=== PATIENT | female | born 1990 | race Caucasian/White ===

== ENCOUNTER 2016-05-10 17:45 | Emergency (ER) | payer BC, MEDICAID ==
--- NOTE | 2016-05-10 18:04 | ER Document Report ---
ED Medical Screen (RME) - General Stated Complaint: HEAD PAIN,VOMITING Mode of Arrival: Ambulatory Information source: Patient Notes: Patient presents to the emergency department with headache cramping vomiting. Patient is approximately 16 weeks . Denies vag bleed I greeted and performed a rapid initial assessment of this patient. Comprehensive ED assessment and evaluation of the patient, analysis of test results and completion of the medical decision making process will be conducted by additional ED providers. - Related Data Allergies/Adverse Reactions: levetiracetam [From Keppra] Allergy (Severe, Verified 05/10/16 18:03) Anaphylaxis pregabalin [From Lyrica] Allergy (Severe, Verified 05/10/16 18:03) Chest pain Physical Exam - Vital signs Vitals: Temp Pulse Resp BP Pulse Ox 98.6 F 106 H 18 122/76 100 05/10/16 17:53 05/10/16 17:53 05/10/16 17:53 05/10/16 17:53 05/10/16 17:53 Course - Vital Signs Vital signs: Temp Pulse Resp BP Pulse Ox 98.6 F 106 H 18 122/76 100 05/10/16 17:53 05/10/16 17:53 05/10/16 17:53 05/10/16 17:53 05/10/16 17:53
[2016-05-10] MEDS ORDERED: NORMAL SALINE 1000 ML 1,000 ML IV ONE ×2 (18:35→19:33)
[2016-05-10 18:52] LABS: ABSOLUTE EOSINOPHILS # (AUTO) 0.1 10^3/uL (0.0-0.6); ABSOLUTE MONOCYTES (AUTO) 0.7 10^3/uL (0.1-1.4); ABSOLUTE NEUT (AUTO) 12.4 10^3/uL (1.7-8.2); BASOPHILS % (AUTO) 0.3 % (0-2); EOSINOPHILS % (AUTO) 0.5 % (0-6); HEMATOCRIT 42.7 % (36.0-47.0); HEMOGLOBIN 13.8 g/dL (12.0-15.5); HGB HCT DIFFERENCE -1.3; LYMPHOCYTES % (AUTO) 7.1 % (13-45); MEAN CORPUSCULAR HEMOGLOBIN 29.4 pg (27.0-33.4); MEAN CORPUSCULAR HGB CONC 32.4 g/dL (32.0-36.0); MEAN CORPUSCULAR VOLUME 91 fl (80-97); MONOCYTES % (AUTO) 4.7 % (3-13); RED BLOOD COUNT 4.71 10^6/uL (3.72-5.28); RED CELL DISTRIBUTION WIDTH 12.4 % (11.5-14.0); SEGMENTED NEUTROPHILS % (AUTO) 87.4 % (42-78); WHITE BLOOD COUNT 14.2 10^3/uL (4.0-10.5)
[2016-05-10 19:25] LABS: ALANINE AMINOTRANSFERASE 25 U/L (9-52); ALBUMIN 3.8 g/dL (3.5-5.0); ALKALINE PHOSPHATASE 74 U/L (38-126); ANION GAP 12 (5-19); ASPARTATE AMINO TRANSFERASE 27 U/L (14-36); BILIRUBIN,TOTAL 0.6 mg/dL (0.2-1.3); BLOOD UREA NITROGEN 11 mg/dL (7-20); CALCIUM 8.8 mg/dL (8.4-10.2); CARBON DIOXIDE 23 mmol/L (22-30); CHLORIDE 100 mmol/L (98-107); CREATININE RESULT 0.45 mg/dL (0.52-1.25); GLUCOSE 71 mg/dL (75-110); SODIUM 135.3 mmol/L (137-145); TOTAL PROTEIN 6.8 g/dL (6.3-8.2)
[2016-05-10 19:45] LABS: APPEARANCE,URINE SLIGHTLY-CLOUDY; BILIRUBIN,URINE NEGATIVE (NEGATIVE); GLUCOSE, URINE NEGATIVE (NEGATIVE); KETONES,URINE 80 mg/dL (NEGATIVE); LEUKOCYTE ESTERASE,URINE TRACE (NEGATIVE); NITRITE,URINE NEGATIVE (NEGATIVE); PROTEIN,URINE NEGATIVE (NEGATIVE); URINE SPECIFIC GRAVITY 1.024
[2016-05-10] MEDS ORDERED: ONDANSETRON ODT 4 MG TAB (6 TAB/DSPK) PO PRN (20:55)
--- NOTE | 2016-05-10 21:02 | ER Document Report ---
ED GI/ - General Chief Complaint: Abdominal Cramping Stated Complaint: HEAD PAIN,VOMITING Mode of Arrival: Ambulatory TRAVEL OUTSIDE OF THE [place] IN LAST 30 DAYS: No - HPI Patient complains to provider of: Pelvic pain, Vomiting Onset: Yesterday - EVENING Timing/Duration: Gradual, Waxing and waning Quality of pain: Achy, Cramping - PELVIC, Dull Severity at maximum: Moderate Severity in ED: Mild Context: , Other - HAD FLU AND P17 INJECTION YESTERDAY @ OB. OFFICE Location: Pelvis Vaginal bleeding (Compared to normal period): None Menstrual period history: - 16 WKS heart tones (bpm): 154 Sexual history: Active Associated symptoms: Nausea, Vomiting. denies: Diarrhea, Dysuria, Fever Exacerbated by: Food - OR LIQUID Relieved by: Denies Similar symptoms previously: No Recently seen / treated by doctor: Yes - SEE ABOVE - Related Data Allergies/Adverse Reactions: levetiracetam [From Keppra] Allergy (Severe, Verified 05/10/16 18:03) Anaphylaxis pregabalin [From Lyrica] Allergy (Severe, Verified 05/10/16 18:03) Chest pain Past Medical History - General Information source: Patient - Social History Smoking Status: Never Smoker Chew tobacco use (# tins/day): No Frequency of alcohol use: None Drug Abuse: None Lives with: Spouse/Significant other Family History: Reviewed & Not Pertinent Patient has suicidal ideation: No Patient has homicidal ideation: No - Past Medical History Cardiac Medical History: Reports: None Pulmonary Medical History: Reports: None EENT Medical History: Reports: None Neurological Medical History: Reports: Hx Migraine Endocrine Medical History: Reports: None Renal/ Medical History: Reports: Other - PREMATURE DELIVERY. Denies: Hx Peritoneal Dialysis Malignancy Medical History: Reports: None GI Medical History: Reports: None Musculoskeltal Medical History: Reports None Psychiatric Medical History: Reports: None Past Surgical History: Reports: Hx Orthopedic Surgery - left forearm, right shoulder Review of Systems - Review of Systems Constitutional: No symptoms reported EENT: No symptoms reported Cardiovascular: No symptoms reported Respiratory: No symptoms reported Gastrointestinal: See HPI Genitourinary: See HPI Female Genitourinary: See HPI Musculoskeletal: No symptoms reported Skin: No symptoms reported Neurological/Psychological: See HPI Physical Exam - Vital signs Vitals: Temp Pulse Resp BP Pulse Ox 98.6 F 106 H 18 122/76 100 05/10/16 17:53 05/10/16 17:53 05/10/16 17:53 05/10/16 17:53 05/10/16 17:53 Interpretation: Tachycardic. No: Hypotensive, Tachypneic, Febrile - General General appearance: Appears well, Alert In distress: None - HEENT Head: Normocephalic Eyes: Normal Conjunctiva: Normal Ears: Normal Nasal: Normal Mouth/Lips: Normal Mucous membranes: Dry - MILDLY Pharynx: Normal Neck: Normal - Respiratory Respiratory status: No respiratory distress Breath sounds: Normal - Cardiovascular Rhythm: Regular, Tachycardia Heart sounds: Normal auscultation Murmur: No - Abdominal Inspection: Gravid female Bowel sounds: Normal Tenderness: Nontender - Extremities General upper extremity: Normal inspection General lower extremity: Normal inspection - Neurological Neuro grossly intact: Yes Cognition: Normal Orientation: AAOx4 - Psychological Associated symptoms: Normal affect, Normal mood - Skin Skin Temperature: Warm Skin Moisture: Dry Skin Color: Normal Skin Turgor: Elastic Course - Re-evaluation Re-evalutation: 05/10/16 20:56 Patient states she is much improved. Only slight nausea. Cramps have diminished. Results of ultrasound discussed with patient and spouse. - Vital Signs Vital signs: Temp Pulse Resp BP Pulse Ox 98.6 F 106 H 18 122/76 100 05/10/16 17:53 05/10/16 17:53 05/10/16 18:29 05/10/16 17:53 05/10/16 17:53 - Laboratory Result Diagrams: 05/10/16 18:40 05/10/16 18:40 Laboratory results interpreted by me: 05/10/16 05/10/16 05/10/16 18:07 18:40 18:40 WBC 14.2 H Seg Neutrophils % 87.4 H Lymphocytes % 7.1 L Absolute Neutrophils 12.4 H Sodium 135.3 L Creatinine 0.45 L Glucose 71 L Urine Ketones 80 H Urine Urobilinogen 2.0 H Ur Leukocyte Esterase TRACE H - Consults DR. Zoë LOBATO Time consulted: 19:50 Consulted provider: follow-up in office Discharge - Discharge Clinical Impression: Dehydration Vomiting Qualifiers: Vomiting type: unspecified Vomiting Intractability: non-intractable Nausea presence: with nausea Qualified Code(s): R11.2 - Nausea with vomiting, unspecified Qualifiers: Weeks of gestation: 16 weeks Qualified Code(s): Z3A.16 - 16 weeks gestation of Condition: Stable Disposition: HOME, SELF-CARE Instructions: Antinausea Medication ([facility]), Dehydration ([facility]), Intravenous (IV) Fluids ([facility]) Additional Instructions: CLEAR LIQUID DIET UNTIL IMPROVED, THEN GRADUALLY ADVANCE DIET. YOU MAY TAKE ZOFRAN IF NEEDED FOR NAUSEA CONTROL. FOLLOW UP WITH YOUR OB. DOCTOR SCHEDULED. RETURN TO E.R. IF YOU GET WORSE, ANY TIME. Referrals: TSERING LOBATO MD [ACTIVE STAFF] - Follow up as needed
[2016-05-10 21:48] VITALS: BP 112/66
== END 2016-05-10 21:48 | disposition home or self-care (01) ==
LOC: ER 17:45
DX: O21.9 Vomiting of pregnancy, unspecified (principal); O99.282 Endocrine, nutritional and metabolic diseases complicating pregnancy, second trimester; E86.0 Dehydration; O26.892 Other specified pregnancy related conditions, second trimester; R10.2 Pelvic and perineal pain; R00.0 Tachycardia, unspecified; Z3A.16 16 weeks gestation of pregnancy; Z88.8 Allergy status to other drugs, medicaments and biological substances; Z88.6 Allergy status to analgesic agent
CPT/HCPCS: 99284; 96360; 96361; 36415; 85025; 80053; 81001; 76817; J7030

== ENCOUNTER 2016-09-16 17:08 | Outpatient (CLI) | payer BC, MEDICAID | END 2016-09-16 17:45 | disposition home or self-care (01) | LOC: LC 17:08 | PROVIDERS: ATTEND Obstetrics & Gynecology | PROC: 4A1HXCZ Monitoring of Products of Conception, Cardiac Rate, External Approach (ICD-10-PCS; principal; 2016-09-16) | DX: O36.8130 Decreased fetal movements, third trimester, not applicable or unspecified (principal); Z3A.35 35 weeks gestation of pregnancy | CPT/HCPCS: 59025 ==

== ENCOUNTER 2016-10-11 08:58 | Outpatient (CLI) | payer BC, MEDICAID ==
[2016-10-11 09:44] LABS: APPEARANCE,URINE SLIGHTLY-CLOUDY; BILIRUBIN,URINE NEGATIVE (NEGATIVE); GLUCOSE, URINE NEGATIVE (NEGATIVE); KETONES,URINE NEGATIVE (NEGATIVE); LEUKOCYTE ESTERASE,URINE NEGATIVE (NEGATIVE); NITRITE,URINE NEGATIVE (NEGATIVE); PROTEIN,URINE NEGATIVE (NEGATIVE); URINE SPECIFIC GRAVITY 1.004; UROBILINOGEN,URINE NEGATIVE mg/dL (<2.0)
[2016-10-11 10:09] LABS: URINE BARBITURATES SCREEN NEGATIVE; URINE METHADONE SCREEN NEGATIVE; URINE OPIATES LOW NEGATIVE; URINE PHENCYCLIDINE SCREEN NEGATIVE
[2016-10-11 10:17] LABS: ABSOLUTE EOSINOPHILS # (AUTO) 0.1 10^3/uL (0.0-0.6); ABSOLUTE LYMPHOCYTES (AUTO) 2.7 10^3/uL (0.5-4.7); ABSOLUTE MONOCYTES (AUTO) 0.8 10^3/uL (0.1-1.4); ABSOLUTE NEUT (AUTO) 7.5 10^3/uL (1.7-8.2); BASOPHILS % (AUTO) 0.2 % (0-2); EOSINOPHILS % (AUTO) 0.8 % (0-6); HEMATOCRIT 38.2 % (36.0-47.0); HEMOGLOBIN 12.3 g/dL (12.0-15.5); HGB HCT DIFFERENCE -1.3; LYMPHOCYTES % (AUTO) 23.9 % (13-45); MEAN CORPUSCULAR HEMOGLOBIN 27.2 pg (27.0-33.4); MEAN CORPUSCULAR HGB CONC 32.2 g/dL (32.0-36.0); MEAN CORPUSCULAR VOLUME 84 fl (80-97); MONOCYTES % (AUTO) 7.5 % (3-13); RED BLOOD COUNT 4.53 10^6/uL (3.72-5.28); RED CELL DISTRIBUTION WIDTH 13.3 % (11.5-14.0); SEGMENTED NEUTROPHILS % (AUTO) 67.6 % (42-78); WHITE BLOOD COUNT 11.1 10^3/uL (4.0-10.5)
[2016-10-11 10:26] LABS: ALANINE AMINOTRANSFERASE 23 U/L (9-52); ALBUMIN 3.1 g/dL (3.5-5.0); ALKALINE PHOSPHATASE 173 U/L (38-126); ANION GAP 9 (5-19); ASPARTATE AMINO TRANSFERASE 21 U/L (14-36); BILIRUBIN,DIRECT 0.2 mg/dL (0.0-0.4); BILIRUBIN,TOTAL 0.4 mg/dL (0.2-1.3); BLOOD UREA NITROGEN 9 mg/dL (7-20); CARBON DIOXIDE 20 mmol/L (22-30); CHLORIDE 107 mmol/L (98-107); CREATININE RESULT 0.51 mg/dL (0.52-1.25); GLUCOSE 92 mg/dL (75-110); LDH 418 U/L (313-618); POTASSIUM 4.1 mmol/L (3.6-5.0); SODIUM 135.6 mmol/L (137-145); TOTAL PROTEIN 6.2 g/dL (6.3-8.2); URIC ACID 6.6 mg/dL (2.5-6.2)
[2016-10-11 11:16] LABS: URINE CREATININE 32.7 mg/dL (16-327); URINE PROTEIN 14.1 mg/dL (<12)
--- NOTE | 2016-10-11 11:44 | Non Stress Test Report ---
Non Stress Test Datetime Report Generated by CPN: 10/11/2016 11:44 DEMOGRAPHIC EGA NST: 38.5 EGA NST: 35.1 INDICATION Indication for Study: Ordered by Provider Indication for Study: Decreased Movement MONITORING Monitor Explained: Monitor Explained; Test Explained; Patient Verbalized Understanding Monitor Explained: Monitor Explained; Test Explained; Patient Verbalized Understanding Time on Monitor: 10/11/2016 09:21 Time on Monitor: 09/16/2016 17:15 Time off Monitor: 10/11/2016 11:32 Time off Monitor: 09/16/2016 17:38 NST Duration: 131 NST Duration: 23 NST INTERVENTIONS NST Interventions: PO Hydration; Reposition Patient NST Interventions: PO Hydration; IV Fluids Physician Notified NST: Tatiana Yangel [facility] Physician Notified NST: Mau BABY A: [id number] BABY A Movement : Present Contraction Frequency : none Contraction Frequency : x0 FHR Baseline : 130 FHR Baseline : 140 Accelerations : 15X15 Accelerations : 15X15 Decelerations : None Decelerations : None Variability : Moderate 6-25bpm Variability : Moderate 6-25bpm NST Review: Meets Criteria for Reactive NST NST Review: Meets Criteria for Reactive NST NST Review and Verified By : Tatiana Aviles RN NST Results: Reactive NST Results: Reactive NST REPORT Report Trigger: Send Report
== END 2016-10-11 11:40 | disposition home or self-care (01) ==
LOC: LC 08:58
PROVIDERS: ATTEND Specialist
PROC: 4A1HXCZ Monitoring of Products of Conception, Cardiac Rate, External Approach (ICD-10-PCS; principal; 2016-10-11)
DX: O14.93 Unspecified pre-eclampsia, third trimester (principal); Z3A.35 35 weeks gestation of pregnancy
CPT/HCPCS: 36415; 80053; 80307; 81001; 82570; 83615; 84156; 84550; 85025

== ENCOUNTER → 2016-10-12 | Outpatient (CLI) | payer BC, MEDICAID | LOC: LAB 14:42 | PROVIDERS: ATTEND Specialist | DX: O12.10 Gestational proteinuria, unspecified trimester (principal) | CPT/HCPCS: 84156 ==

== ENCOUNTER 2016-10-17 20:00 | Inpatient (IN) | payer BC, MEDICAID ==
[2016-10-17 20:39] LABS: ABSOLUTE BASOPHILS # (AUTO) 0.1 10^3/uL (0.0-0.2); ABSOLUTE EOSINOPHILS # (AUTO) 0.1 10^3/uL (0.0-0.6); ABSOLUTE LYMPHOCYTES (AUTO) 4.9 10^3/uL (0.5-4.7); ABSOLUTE MONOCYTES (AUTO) 1.4 10^3/uL (0.1-1.4); ABSOLUTE NEUT (AUTO) 7.9 10^3/uL (1.7-8.2); BASOPHILS % (AUTO) 0.6 % (0-2); EOSINOPHILS % (AUTO) 0.8 % (0-6); HEMATOCRIT 37.9 % (36.0-47.0); HEMOGLOBIN 12.2 g/dL (12.0-15.5); HGB HCT DIFFERENCE -1.3; LYMPHOCYTES % (AUTO) 34.2 % (13-45); MEAN CORPUSCULAR HEMOGLOBIN 27.6 pg (27.0-33.4); MEAN CORPUSCULAR HGB CONC 32.2 g/dL (32.0-36.0); MEAN CORPUSCULAR VOLUME 86 fl (80-97); MONOCYTES % (AUTO) 9.5 % (3-13); RED BLOOD COUNT 4.42 10^6/uL (3.72-5.28); RED CELL DISTRIBUTION WIDTH 13.4 % (11.5-14.0); SEGMENTED NEUTROPHILS % (AUTO) 54.9 % (42-78); WHITE BLOOD COUNT 14.4 10^3/uL (4.0-10.5)
[2016-10-17 20:46] LABS: APPEARANCE,URINE CLOUDY; BILIRUBIN,URINE NEGATIVE (NEGATIVE); GLUCOSE, URINE NEGATIVE (NEGATIVE); KETONES,URINE NEGATIVE (NEGATIVE); LEUKOCYTE ESTERASE,URINE NEGATIVE (NEGATIVE); NITRITE,URINE NEGATIVE (NEGATIVE); PROTEIN,URINE NEGATIVE (NEGATIVE); URINE SPECIFIC GRAVITY 1.023; UROBILINOGEN,URINE NEGATIVE mg/dL (<2.0)
[2016-10-17] MEDS ORDERED: OXYTOCIN/NORMAL SALINE 1,000 ML IV PRN (21:01)
[2016-10-17] MEDS ORDERED: RINGERS SOLUTION,LACTATED 300 ML IV ONE (21:01)
[2016-10-17] MEDS ORDERED: DINOPROSTONE 10 MG VAGINAL INSERT.SR PV PRN (21:01)
[2016-10-17 21:03] LABS: URINE BARBITURATES SCREEN NEGATIVE; URINE METHADONE SCREEN NEGATIVE; URINE OPIATES LOW NEGATIVE; URINE PHENCYCLIDINE SCREEN NEGATIVE
[2016-10-17] MEDS: RINGERS SOLUTION,LACTATED 1,000 ML IV PRN (21:20)
[2016-10-17] MEDS ORDERED: DINOPROSTONE 10 MG VAGINAL INSERT.SR ONE (21:28)
[2016-10-17] MEDS ORDERED: ACETAMINOPHEN 325 MG TABLET PO ONE (22:15)
[2016-10-17] MEDS ORDERED: ACETAMINOPHEN 325 MG TABLET ONE (22:19)
[2016-10-17 23:37] LABS: ALANINE AMINOTRANSFERASE 23 U/L (9-52); ALKALINE PHOSPHATASE 182 U/L (38-126); ANION GAP 10 (5-19); ASPARTATE AMINO TRANSFERASE 20 U/L (14-36); BILIRUBIN,DIRECT 0.3 mg/dL (0.0-0.4); BILIRUBIN,TOTAL 0.4 mg/dL (0.2-1.3); BLOOD UREA NITROGEN 11 mg/dL (7-20); CALCIUM 8.5 mg/dL (8.4-10.2); CARBON DIOXIDE 21 mmol/L (22-30); CHLORIDE 107 mmol/L (98-107); GLUCOSE 72 mg/dL (75-110); LDH 374 U/L (313-618); POTASSIUM 3.7 mmol/L (3.6-5.0); SODIUM 137.5 mmol/L (137-145); TOTAL PROTEIN 5.9 g/dL (6.3-8.2); URIC ACID 6.2 mg/dL (2.5-6.2)
[2016-10-18 00:06] LABS: APPEARANCE,URINE SLIGHTLY-CLOUDY; BILIRUBIN,URINE NEGATIVE (NEGATIVE); GLUCOSE, URINE NEGATIVE (NEGATIVE); KETONES,URINE 20 mg/dL (NEGATIVE); LEUKOCYTE ESTERASE,URINE NEGATIVE (NEGATIVE); NITRITE,URINE NEGATIVE (NEGATIVE); PROTEIN,URINE NEGATIVE (NEGATIVE); UROBILINOGEN,URINE NEGATIVE mg/dL (<2.0)
[2016-10-18] MEDS ORDERED: ZOLPIDEM TARTRATE 5 MG TABLET PO ONE (02:22)
[2016-10-18] MEDS ORDERED: ZOLPIDEM TARTRATE 5 MG TABLET ONE (02:27)
[2016-10-18] MEDS: RINGERS SOLUTION,LACTATED 1,000 ML IV PRN (03:48)
--- NOTE | 2016-10-18 08:26 | L&D Progress Notes ---
PROGRESS NOTES Datetime Report Generated by CPN: 10/18/2016 08:26 PROGRESS NOTE Impression: Reassuring Heart Rate Procedures: Sterile Vag Exam Plan: Induction Informed Consent Obtained: Vaginal Delivery Vital Signs : Reviewed; Within Normal Limits Comment: Crampy Cervidil removed, SVE as above Pt may shower and have breakfast Start pit after break Pitocin per protocol. Anticpate VAGINAL EXAM Dilatation: 3 Dilatation: 2 Effacement: 70 Effacement: 50 Station: -1 Station: -2 Contractions: irregulqr MEMBRANES Membranes: Intact Membranes: Intact FETUS A FHR - Baseline: 140 Monitoring: External US Variability: Moderate 6-25bpm Decelerations: None : 39.5 SIGNATURE SIGNATURE: [id number] SIGNATURE: [id number] Assignment: Thi Mims MD Signature: with User ID: [email or web address] : with User ID: [email or web address]
[2016-10-18] MEDS ORDERED: OXYTOCIN/NORMAL SALINE 20 UNIT/1,000 ML RTUINJ ONE (09:23)
--- NOTE | 2016-10-18 13:16 | L&D Progress Notes ---
PROGRESS NOTES Datetime Report Generated by CPN: 10/18/2016 13:16 PROGRESS NOTE Impression: Reassuring Heart Rate Procedures: Artificial ROM; Scalp Electrode Plan: Continue Present Management; Induction Informed Consent Obtained: Vaginal Delivery Vital Signs : Reviewed; Within Normal Limits Comment: AROM clear Pt declines pain meds at this time Continue pitocin VAGINAL EXAM Dilatation: 4 Effacement: 80 Station: -1 Contractions: irregular MEMBRANES Membranes: Ruptured Amniotic Fluid Color: Clear FETUS A FHR - Baseline: 140 Monitoring: External US Variability: Moderate 6-25bpm Accelerations: 15X15 Decelerations: None FHR Category: Category I FETUS C SIGNATURE: [id number] Assignment: Thi Mims MD Signature: with User ID: [email or web address] : with User ID: [email or web address]
[2016-10-18] MEDS ORDERED: DIPH/PERTUSS(ACELL)/TETANUS VAC/PF 0.5 ML SYR (>=10YO) IM PRN (14:31)
[2016-10-18] MEDS ORDERED: MEASLES,MUMPS&RUBELLA VACC/PF 0.5 ML VIAL SUBCUT PRN (14:31)
[2016-10-18] MEDS ORDERED: BENZOCAINE/MENTHOL AEROSOL SPRAY 56 ML TOP PRN (14:31)
[2016-10-18] MEDS ORDERED: ZOLPIDEM TARTRATE 5 MG TABLET PO PRN (14:31)
[2016-10-18] MEDS ORDERED: ACETAMINOPHEN WITH CODEINE #3 TABLET PO PRN (14:31)
[2016-10-18] MEDS ORDERED: OXYTOCIN/NORMAL SALINE 1,000 ML IV PRN (14:31)
[2016-10-18] MEDS ORDERED: DIBUCAINE 1% OINTMENT 28 GM TP PRN (14:31)
--- NOTE | 2016-10-18 15:11 | Delivery Summary ---
Del Sum A-C Datetime Report Generated by CPN: 10/18/2016 15:11 DELIVERY PERSONNEL DELIVERY PERSONNEL: [id number] Delivery Doctor:: Raissa Riley CNM Labor and Delivery Nurse:: Cami Elmore RNconversion developer Nurse:: TOVA Alvarado/CARROTING MACHINE OPERATOR: Dee Angel, MANAGER BANKING MATERNAL INFORMATION Delivery Anesthesia: None Medications After Delivery: Pitocin Bolus-Please Comment; Pitocin Drip 20 Units/1000ml NSS Estimated Blood Loss (ml): 200 Maternal Complications: Other Other Maternal Complications: Gest HTN Provider Comments: of viable female infant over intact perineum. Head shoulders and body delviered without difficulty. with spontaneous cry and respirations to maternal abdomen, cord clamped X2, cut free, after 2 minute delay, spontaneous delivery of intact placetna via christopher mechanism, appears intact 3 vc. vagina and perineum inspected no lacerations noted, superficial abarsions noted, not bleeding, not reapired. Hemostasis acheived with external fundal massage and IV pitocin motther and in stable condition routine pp care. LABOR SUMMARY EDC: 10/20/2016 00:00 No. Babies in Womb: 1 Attempted: No Labor Anesthesia: None LABOR INFORMATION Reason for Induction: Gestational Hypertension Onset of Labor: 10/18/2016 11:36 Complete Dilatation: 10/18/2016 14:04 Cervical Ripening Agents: Cervidil Oxytocin: Induction Group B Beta Strep: neg Antibiotics # of Doses: 0 Steroids Given: None Reason Steroids Not Administered: Not Applicable MEMBRANES Membranes Rupture Method: Artificial Rupture of Membranes: 10/18/2016 11:36 Length of Rupture (hr): 2.50 Amniotic Fluid Color: Clear Amniotic Fluid Amount: Moderate Amniotic Fluid Odor: Normal STAGES OF LABOR Stage 1 hr: 2 Stage 1 min: 28 Stage 2 hr: 0 Stage 2 min: 2 VAGINAL DELIVERY Episiotomy: None Laceration Extension: N/A Laceration Type: None Laceration Repair: Not Applicable Laceration Repair Note: n/a Sponge Count Correct: N/A Sharps Count Correct: N/A CSECTION DELIVERY Primary Indication: N/A Secondary Indication: N/A CSection Incidence: N/A Labor: N/A Elective: N/A CSection Incision: N/A BABY A INFORMATION Delivery Date/Time: 10/18/2016 14:06 Method of Delivery: Vaginal Born in Route : No : N/A Forceps: Outlet Vacuum Extraction: N/A Shoulder Dystocia : No PRESENTATION/POSITION BABY A Presentation: Cephalic Cephalic Presentation: Vertex Vertex Position: Left Occipital Anterior Breech Presentation: N/A PLACENTA INFORMATION BABY A Placenta Method of Delivery: Spontaneous Placenta Status: Delivered SCORES BABY A Heart Rate 1 min: >100 bpm Resp Effort 1 min: Good Cry Reflex Irritability 1 min: Cough or Sneeze or Pulls Away Muscle Tone 1 min: Active Motion Color 1 min: Body Stamping Ground, Extremities Blue Resuscitation Effort 1 min: Tactile Stimulation SCORE 1 MIN: 9 Heart Rate 5 min: >100 bpm Resp Effort 5 min: Good Cry Reflex Irritability 5 min: Cough or Sneeze or Pulls Away Muscle Tone 5 min: Active Motion Color 5 min: Body Stamping Ground, Extremities Blue Resuscitation Effort 5 min: Tactile Stimulation SCORE 5 MIN: 9 INFANT INFORMATION BABY A Gestational Age at Delivery: 39.5 Gestational Status: Full Term- 39- 40.6 Weeks Outcome : Liveborn Infant Condition : Stable Sex: Female IDENTIFICATION BABY A Infant Verification Date/Time: 10/18/2016 14:19 ID Band Number: [id number] Mother's Name Verified: Yes Infant RN Verifying Infant: D Bellavance RNC Additional Verifying Personnel: A Ramírez RNC WEIGHT/LENGTH BABY A Birthweight (gm): 3130 Weight (lb): 6 Weight (oz): 14 Infant Length (in): 20.50 Length (cm): 52.07 CORD INFORMATION BABY A No. Cord Vessels: 3 Nuchal Cord : N/A Cord Blood Taken: Yes-For Storage (Mom's Blood type +) Infant Suction: Mouth; Nose ASSESSMENT BABY A Complications: None Physical Findings at Delivery: Within Normal Limits Respirations: Appears Normal Skin to Skin: Yes Skin to Skin Time (min): 70 Computing Machine Operator/ALS Called : No Infant Care By: D Bellavance RNC Transferred To: Remains with Mother BABY B INFORMATION : N/A SIGNATURES Assignment: Thi Mims MD Signature: with User ID: [email or web address] : with User ID: [email or web address]
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
[2016-10-18] MEDS: FERROUS SULFATE 325 MG TABLET PO SCH (18:07)
[2016-10-18] MEDS: DOCUSATE SODIUM 100 MG CAPSULE PO SCH (18:07)
[2016-10-18] MEDS: IBUPROFEN 800 MG TABLET PO SCH (20:24)
[2016-10-19] MEDS: ACETAMINOPHEN WITH CODEINE #3 TABLET PO PRN ×2 (05:41→12:23)
[2016-10-19] MEDS: IBUPROFEN 800 MG TABLET PO SCH ×3 (06:07→21:31)
[2016-10-19 07:36] LABS: HEMATOCRIT 34.8 % (36.0-47.0); HEMOGLOBIN 11.2 g/dL (12.0-15.5); HGB HCT DIFFERENCE -1.2; MEAN CORPUSCULAR HEMOGLOBIN 27.7 pg (27.0-33.4); MEAN CORPUSCULAR HGB CONC 32.3 g/dL (32.0-36.0); MEAN CORPUSCULAR VOLUME 86 fl (80-97); RED BLOOD COUNT 4.05 10^6/uL (3.72-5.28); RED CELL DISTRIBUTION WIDTH 13.3 % (11.5-14.0); WHITE BLOOD COUNT 14.7 10^3/uL (4.0-10.5)
[2016-10-19] MEDS: SENNOSIDES/DOCUSATE 8.6-50 MG 1 EACH TABLET PO SCH (09:06)
[2016-10-19] MEDS: PRENATAL VITAMIN W-O CA NO5/FE FUMARATE/FA CAPSULE PO SCH (09:06)
[2016-10-19] MEDS: FERROUS SULFATE 325 MG TABLET PO SCH ×2 (09:06→17:08)
[2016-10-19] MEDS: DOCUSATE SODIUM 100 MG CAPSULE PO SCH ×2 (09:06→17:08)
--- NOTE | 2016-10-19 09:44 | PDOC PROGRESS REPORT ---
Subjective-OB Subjective: Post Delivery Day: 1 25 year old. Denies any needs at this time, states voiding without difficulty, pain well controlled, lochia is stable. Physical Exam (OB) Vital Signs: Temp Pulse Resp BP Pulse Ox 97.8 F 82 14 121/87 H 97 10/19/16 07:42 10/19/16 07:42 10/19/16 07:42 10/19/16 07:42 10/19/16 07:42 Intake & Output 10/18/16 10/19/16 10/20/16 06:59 06:59 06:59 Intake Total 240 Balance 240 Weight 96.05 kg - Lochia Lochia Amount: Scant < 10 ml Lochia Color: Rubra/Red - Abdomen Description: Tender, Soft, Round Hernia Present: No Fundal Description: Firm, Midline Fundal Height: u/u - u/2 Objective-Diagnostic Laboratory: 10/19/16 07:22 10/17/16 23:15 10/19/16 07:22 WBC 14.7 H RBC 4.05 Hgb 11.2 L Hct 34.8 L MCV 86 MCH 27.7 MCHC 32.3 RDW 13.3 Plt Count 393
[2016-10-20] MEDS: IBUPROFEN 800 MG TABLET PO SCH (05:23)
--- NOTE | 2016-10-20 09:01 | PDOC DISCHARGE SUMMARY ---
Final Diagnosis Discharge Date: 10/20/16 - Final Diagnosis (1) Vaginal delivery Is this a current diagnosis for this admission?: Yes Discharge Data - Discharge Medication Home Medications: Vitamins Tablet 1 tab PO DAILY 03/14/11 Acetaminophen with Codeine [Tylenol #3 Tablet] 2 each PO Q4HP PRN #10 tablet Docusate Sodium [Colace 100 mg Capsule] 100 mg PO BID #60 capsule 10/20/16 Ferrous Sulfate [Feosol 325 mg Tablet] 325 mg PO DAILY #30 tablet 10/20/16 Ibuprofen [Motrin 800 mg Tablet] 800 mg PO Q8 #60 tablet 10/20/16 Gestational Age: 39.5 Reason(s) for Admission: Induction of Labor, Other - Gestational hypertension Procedures: NST Intrapartum Procedure(s): Spontaneous Vaginal Delivery - [place] Data Baby 1 Female at 1 minute: 9 at 5 minutes: 9 Weight: 3130 kg Home with Mother: Yes Complications: No - Diagnosis Test Laboratory: Temp Pulse Resp BP Pulse Ox 98.3 F 86 15 135/85 H 97 10/20/16 08:12 10/20/16 08:12 10/20/16 08:12 10/20/16 08:12 10/20/16 08:12 10/17/16 10/17/16 10/19/16 20:24 20:26 07:22 RBC 4.42 4.05 Hgb 12.2 11.2 L Hct 37.9 34.8 L Urine Opiates Screen NEGATIVE - Discharge information/Instructions Discharge Activity: Activity As Tolerated, No Lifting Over 10 Pounds, Pelvic Rest, No tub bath Discharge Diet: Regular Disposition: HOME, SELF-CARE Follow up with: [facility] in: 1, Weeks - BP check
[2016-10-20] MEDS: SENNOSIDES/DOCUSATE 8.6-50 MG 1 EACH TABLET PO SCH (09:20)
[2016-10-20] MEDS: DOCUSATE SODIUM 100 MG CAPSULE PO SCH (09:21)
[2016-10-20] MEDS: FERROUS SULFATE 325 MG TABLET PO SCH (09:21)
[2016-10-20] MEDS: PRENATAL VITAMIN W-O CA NO5/FE FUMARATE/FA CAPSULE PO SCH (09:21)
[2016-10-20 09:45] VITALS: BP 126/81
== END 2016-10-20 12:10 | disposition home or self-care (01) | DRG 775 ==
LOC: LR 20:00 → 2S 10-18 16:23
PROVIDERS: ADMIT Obstetrics & Gynecology; ATTEND Obstetrics & Gynecology
PROC: 4A1H7CZ Monitoring of Products of Conception, Cardiac Rate, Via Natural or Artificial Opening (ICD-10-PCS; 2016-10-17)
PROC: 10H073Z Insertion of Monitoring Electrode into Products of Conception, Via Natural or Artificial Opening (ICD-10-PCS; 2016-10-17)
PROC: 10E0XZZ Delivery of Products of Conception, External Approach (ICD-10-PCS; principal; 2016-10-18)
PROC: 10907ZC Drainage of Amniotic Fluid, Therapeutic from Products of Conception, Via Natural or Artificial Opening (ICD-10-PCS; 2016-10-18)
PROC: 3E033VJ Introduction of Other Hormone into Peripheral Vein, Percutaneous Approach (ICD-10-PCS; 2016-10-18)
DX: O13.4 Gestational [pregnancy-induced] hypertension without significant proteinuria, complicating childbirth (principal); Z90.81 Acquired absence of spleen; Z88.8 Allergy status to other drugs, medicaments and biological substances; Z88.6 Allergy status to analgesic agent; Z3A.39 39 weeks gestation of pregnancy; Z37.0 Single live birth
CPT/HCPCS: 36415; 80053; 80307; 81001; 81005; 83615; 84550; 85025; 85027; 86592; 86850; 86900; 86901; 94760; J2590; J3490